=== PATIENT | female | born 1990 | race African-American/Black ===

== ENCOUNTER 2022-05-01 14:25 | Emergency (ER) | payer OTHER ==
[2022-05-01 14:48] VITALS: BP 111/72; PULSE 80; RESP 17; TEMP 97.6; BMI 27.2
[2022-05-01] MEDS ORDERED: diazePAM 5 MG TABLET PO ONE (16:24)
[2022-05-01] MEDS ORDERED: KETOROLAC TROMETHAMINE 30 MG/1 ML VIAL IM ONE (16:24)
[2022-05-01] MEDS ORDERED: LIDOCAINE 5% TOPICAL PATCH TP ONE (16:24)
[2022-05-01] MEDS ORDERED: LIDOCAINE 5% TOPICAL PATCH ONE (16:33)
[2022-05-01] MEDS ORDERED: KETOROLAC TROMETHAMINE 30 MG/1 ML VIAL ONE (16:33)
[2022-05-01] MEDS ORDERED: diazePAM 5 MG TABLET ONE (16:33)
[2022-05-02] MEDS ORDERED: LIDOCAINE PATCH REMOVAL MC SCH (05:00)
== END 2022-05-01 18:57 | disposition home or self-care (01) ==
LOC: JERFT 14:25
PROC: 3E023GC Introduction of Other Therapeutic Substance into Muscle, Percutaneous Approach (ICD-10-PCS; principal; 2022-05-01)
DX: S39.012A Strain of muscle, fascia and tendon of lower back, initial encounter (principal); V49.40XA Driver injured in collision with unspecified motor vehicles in traffic accident, initial encounter
CPT/HCPCS: 70450-TC; 72100-TC-FY; 72125-TC; 73030-TC-LT-FY; 99284-25

== ENCOUNTER 2023-08-05 12:57 | Emergency (ER) | payer OTHER ==
[2023-08-05 13:04] VITALS: BP 124/80; PULSE 86; RESP 18; BMI 33.4
[2023-08-05 16:03] LABS: ALBUMIN 4.1 g/dl (3.4-5.0); BLOOD UREA NITROGEN 13.5 mg/dL (7-18); CALCIUM 11.5 mg/dL (8.5-10.1)
[2023-08-05 16:06] LABS: CREATININE 0.7 mg/dL (0.55-1.3)
[2023-08-05 16:08] LABS: BILIRUBIN,TOTAL 0.7 mg/dL (0.2-1); TOT PROT 7.7 g/dl (6.4-8.2)
[2023-08-05] MEDS ORDERED: HIV POST EXPOSURE PROPHYLAXIS KIT PO ONE ×2 (16:17→16:27)
[2023-08-05 16:43] LABS: SYPHILIS W/ RPR CONF NON-REACTIVE (NONREACTIVE)
[2023-08-05 17:01] LABS: HIV INTERPRETATION NEGATIVE (NEGATIVE)
== END 2023-08-05 17:32 | disposition home or self-care (01) ==
LOC: JERFT 12:57
DX: Z20.6 Contact with and (suspected) exposure to human immunodeficiency virus [HIV] (principal)
CPT/HCPCS: 36415; 80053; 84703; 86780; 86803; 87389; 87491; 87517; 87591; 99283-25